=== PATIENT | female | born 1965 | race Caucasian/White ===

== ENCOUNTER 2021-05-20 17:47 | Emergency (ER) | payer BC ==
[~2021-05-20] VITALS: Ht 167.6 cm; Wt 54.4 kg
== END 2021-05-20 21:58 | disposition home or self-care (01) ==
LOC: ER 17:47
DX: J31.0 Chronic rhinitis (principal); J06.9 Acute upper respiratory infection, unspecified; Z03.818 Encounter for observation for suspected exposure to other biological agents ruled out